=== PATIENT | male | born 1990 | race Hispanic/Latino ===

== ENCOUNTER 2017-05-22 04:13 | Emergency (ER) | payer OTHER ==
[2017-05-22 04:33] VITALS: BP 151/87; RESP 16; TEMP 97.7; O2SAT 100
--- NOTE | 2017-05-22 04:55 | ED PDOC ---
HPI: General Adult Time Seen by Provider: 05/22/17 04:36 Chief Complaint (Nursing): Palpitations History Per: Patient Additional Complaint(s): Pt. states earlier this evening he developed L sided forearm pain, "heartburn," and palpitations. Reports forearm pain is worse with active wrist extension. Also states that he recently returned from a trip to [place]. Denies calf pain, hx of DVT/PE, fever, trauma, numbness, tingling, weakness. Past Medical History Reviewed: Historical Data, Nursing Documentation, Vital Signs Vital Signs: Last Vital Signs Temp 97.7 F 05/22/17 04:30 Pulse 61 05/22/17 05:54 Resp 16 05/22/17 04:30 BP 151/87 H 05/22/17 04:30 Pulse Ox 100 05/22/17 05:54 - Family History Family History: States: No Known Family Hx - Allergies Allergies/Adverse Reactions: Allergies Allergy/AdvReac Type Severity Reaction Status Date / Time No Known Allergies Allergy Verified 05/22/17 04:42 Review of Systems ROS Statement: Except As Marked, All Systems Reviewed And Found Negative Cardiovascular: Positive for: Palpitations Musculoskeletal: Positive for: Arm Pain Physical Exam - Reviewed Nursing Documentation Reviewed: Yes Vital Signs Reviewed: Yes - Physical Exam Appears: Positive for: Well, Non-toxic, No Acute Distress Head Exam: Positive for: ATRAUMATIC, NORMAL INSPECTION, NORMOCEPHALIC Skin: Positive for: Normal Color, Warm. Negative for: Rash Eye Exam: Positive for: EOMI, Normal appearance, PERRL ENT: Positive for: Normal ENT Inspection Neck: Positive for: Normal, Painless ROM Cardiovascular/Chest: Positive for: Regular Rate, Rhythm, Chest Non Tender Respiratory: Positive for: CNT, Normal Breath Sounds Pulses-Radial (L): 2+ Pulses-Radial (R): 2+ Gastrointestinal/Abdominal: Positive for: Normal Exam, Bowel Sounds, Soft. Negative for: Tenderness Back: Positive for: Normal Inspection Extremity: Positive for: Normal ROM (of LUE actively), Capillary Refill (< 2 seconds of left upper extremity), Other (L forearm without tenderness, swelling , warmth, rash, erythema, deformity) Neurologic/Psych: Positive for: Alert, Oriented - Laboratory Results Result Diagrams: 05/22/17 04:53 05/22/17 04:53 - ECG ECG: Positive for: Interpreted By Me ECG Rhythm: Positive for: Sinus Rhythm. Negative for: ST/T Changes Rate: 61 O2 Sat by Pulse Oximetry: 100 - Radiology X-Ray: Interpreted by Me (CXR) X-Ray Interpretation: No Acute Disease - Progress ED Course And Treament: Pt. informed of elevated TSH and instructed to f/u with [facility]. Also informed of [employer]. Disposition - Clinical Impression Clinical Impression: Palpitations, Arm pain - Patient ED Disposition Is Patient to be Admitted: No - Disposition Referrals: [facility] [Outside] [facility] [Outside] Disposition: Routine/Home Disposition Time: 06:02 Condition: STABLE Additional Instructions: FOLLOW UP WITH [facility] FOR FURTHER EVALUATION OF ELEVATED TSH. Instructions: Palpitations (ED) Forms: [facility] ([place])
[2017-05-22 04:57] VITALS: PULSE 61
[2017-05-22 04:57] LABS: BASO # 0.1 K/uL (0.0-0.2); BASO % 1.2 % (0.0-2.0); EOS # 0.2 K/uL (0.0-0.7); EOS % 2.5 % (0.0-4.0); HEMATOCRIT 38.9 % (35.0-51.0); LYMPH # 2.2 K/uL (1.0-4.3); LYMPH % 31.9 % (20.0-40.0); MEAN CELL VOLUME 79.8 fl (80.0-94.0); MEAN CORPUSCULAR HEMOGLOBIN 25.9 pg (27.0-31.0); MEAN CORPUSCULAR HGB CONC 32.5 g/dL (33.0-37.0); MEAN PLATELET VOLUME 8.3 fl (7.2-11.7); MONO # 0.6 K/uL (0.0-0.8); MONO % 8.9 % (0.0-10.0); NEUT # 3.9 K/uL (1.8-7.0); NEUT % 55.5 % (50.0-75.0); NRBC % 0.1 % (0.0-0.0); RED CELL DISTRIBUTION WIDTH 13.2 % (11.5-14.5)
[2017-05-22 05:30] LABS: ALB/GLOB RATIO 1.4 (1.0-2.1); ALKALINE PHOSPHATASE 61 U/L (38-126); ALT/SGPT 46 U/L (21-72); AST/SGOT 27 U/L (17-59); BILIRUBIN,TOTAL 1.2 mg/dl (0.2-1.3); BLOOD UREA NITROGEN 22 mg/dl (9-20); CALCIUM 9.8 mg/dL (8.4-10.2); CARBON DIOXIDE 23 mmol/L (22-30); CHLORIDE 104 mmol/L (98-107); GFR AFRICAN-AMERICAN > 60; GLUCOSE,RANDOM 97 mg/dL (75-110); SODIUM 142 mmol/l (132-148)
[2017-05-22] MEDS ORDERED: Sodium Chloride 0.9% 1,000 ML IV STA (05:54)
[2017-05-22 05:59] LABS: THYROID STIMULATING HORMONE 6.73 mIU/ML (0.46-4.68)
--- NOTE | 2017-05-22 10:10 | RAD ---
HISTORY: chest pain COMPARISON: No prior. FINDINGS: LUNGS: No active pulmonary disease. PLEURA: No significant pleural effusion identified, no pneumothorax apparent. CARDIOVASCULAR: Normal. OSSEOUS STRUCTURES: No significant abnormalities. VISUALIZED UPPER ABDOMEN: Normal. OTHER FINDINGS: None. IMPRESSION: No active disease.
--- NOTE | 2017-05-22 11:27 | CARD ---
APPROVED REPORT EKG Measurement Heart [id number] NE 130P [id number] <Conclusion> Normal sinus rhythm Normal ECG
== END 2017-05-22 06:24 | disposition home or self-care (01) ==
LOC: H.ER 04:13
DX: R00.2 Palpitations (principal); M79.601 Pain in right arm

== ENCOUNTER 2018-01-09 10:56 | Emergency (ER) | payer OTHER ==
[2018-01-09 11:02] VITALS: BMI 25.0
--- NOTE | 2018-01-09 12:17 | ED PDOC ---
HPI: General Adult Time Seen by Provider: 01/09/18 11:51 Chief Complaint (Nursing): Weakness/Neurological Deficit Chief Complaint (Provider): Left facial and hand numbness History Per: Patient History/Exam Limitations: no limitations Onset/Duration Of Symptoms: Hrs (today 8am) Current Symptoms Are (Timing): Still Present Additional Complaint(s): Don Torres is a 27 year old male, with no significant past medical history , who presents to the emergency department complaining of numbness to lateral aspect of left hand, as well as left sided face since waking up this morning at 8:00am. 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 He denies any headache, changes in vision, or weakness of extremities. Patient also reports he was on vacation in the [place] and noted a rash to right wrist, but doesn't recall any bug bites. 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 He denies any fever, chills or joint pain. No further medical complaints. PMD: None provided. Past Medical History Reviewed: Historical Data, Nursing Documentation, Vital Signs Vital Signs: Last Vital Signs Temp 97.7 F 01/09/18 11:03 Pulse 83 01/09/18 11:03 Resp 20 01/09/18 11:03 BP 128/63 01/09/18 11:03 Pulse Ox 100 01/09/18 13:53 - Medical History PMH: No Chronic Diseases - Surgical History Surgical History: No Surg Hx - Family History Family History: States: No Known Family Hx - Social History Current smoker - smoking cessation education provided: No Alcohol: Social Drugs: Denies - Allergies Allergies/Adverse Reactions: Allergies Allergy/AdvReac Type Severity Reaction Status Date / Time shellfish derived Allergy RASH Verified 01/09/18 11:01 Review of Systems ROS Statement: Except As Marked, All Systems Reviewed And Found Negative Constitutional: Negative for: Fever, Chills Eyes: Negative for: Vision Change Musculoskeletal: Negative for: Other (joint pain) Neurological: Positive for: Numbness (to left hand and left sided face). Negative for: Weakness (extremities), Headache Physical Exam - Reviewed Nursing Documentation Reviewed: Yes Vital Signs Reviewed: Yes - Physical Exam Appears: Positive for: Non-toxic, No Acute Distress Head Exam: Positive for: ATRAUMATIC, NORMOCEPHALIC Skin: Positive for: Normal Color, Warm, Dry, Rash (erythematous circular rash to right inner wrist. flat no pale center, no scaling) Eye Exam: Positive for: Normal appearance, EOMI, PERRL Neck: Positive for: Painless ROM Respiratory: Negative for: Respiratory Distress Extremity: Positive for: Normal ROM (full ROM to all extremities). 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 Negative for: Motor/Sensory Deficits (no focal deficits) - ECG O2 Sat by Pulse Oximetry: 100 (RA) Pulse Ox Interpretation: Normal Medical Decision Making Medical Decision Making: Initial Plan: --Head w/o contrast [CT] --Lyme disease AB(IGG,M) IB --Lyme disease(B.SPP) DNA, B --Lyme disease, EIA W/ RFL WB --Lyme IGG --Lyme IGM --Reevaluation 13:[address] FINDINGS: HEMORRHAGE: No intracranial hemorrhage. BRAIN: Normal monreal-white matter differentiation and density are appreciated throughout the cerebrum and cerebellum with the brainstem appearing unremarkable as well. There is no mass effect. There is no suspicious extra-axial fluid collection and the midline brain anatomy appears diffusely unremarkable. VENTRICLES: Unremarkable. No hydrocephalus. CALVARIUM: No destructive bony lesion or displaced fracture identified including through the skullbase. PARANASAL SINUSES: Unremarkable as visualized. No significant inflammatory changes. MASTOID AIR CELLS: Unremarkable as visualized. No inflammatory changes. OTHER FINDINGS: None. IMPRESSION: Unremarkable unenhanced CT of the Head. Scribe Attestation: Documented by Clemente Martinez, acting as a scribe for Rm Lui MD Provider Scribe Attestation: All medical record entries made by the Scribe were at my direction and personally dictated by me. I have reviewed the chart and agree that the record accurately reflects my personal performance of the history, physical exam, medical decision making, and the department course for this patient. I have also personally directed, reviewed, and agree with the discharge instructions and disposition. Disposition - Clinical Impression Clinical Impression: Paresthesia - Patient ED Disposition Is Patient to be Admitted: No Counseled Patient/Family Regarding: Studies Performed, Diagnosis, Need For Followup - Disposition Referrals: Alan Kincaid MD [Medical Doctor] - Disposition: Routine/Home Disposition Time: 13:54 Condition: FAIR Instructions: Paresthesias (DC) Forms: [facility] ([place])
--- NOTE | 2018-01-09 13:15 | CT ---
PROCEDURE: CT HEAD WITHOUT CONTRAST. HISTORY: r/o bleed COMPARISON: None available. TECHNIQUE: Axial computed tomography images were obtained through the head/brain without intravenous contrast. Radiation dose: Total exam DLP = 886.73 mGy-cm. This CT exam was performed using one or more of the following dose reduction techniques: Automated exposure control, adjustment of the mA and/or kV according to patient size, and/or use of iterative reconstruction technique. FINDINGS: HEMORRHAGE: No intracranial hemorrhage. BRAIN: Normal monreal-white matter differentiation and density are appreciated throughout the cerebrum and cerebellum with the brainstem appearing unremarkable as well. There is no mass effect. There is no suspicious extra-axial fluid collection and the midline brain anatomy appears diffusely unremarkable. VENTRICLES: Unremarkable. No hydrocephalus. CALVARIUM: No destructive bony lesion or displaced fracture identified including through the skullbase. PARANASAL SINUSES: Unremarkable as visualized. No significant inflammatory changes. MASTOID AIR CELLS: Unremarkable as visualized. No inflammatory changes. OTHER FINDINGS: None. IMPRESSION: Unremarkable unenhanced CT of the Head.
[2018-01-09 14:28] VITALS: BP 128/78; PULSE 78; RESP 19; TEMP 96.6; O2SAT 98
[2018-01-11 12:05] LABS: 23 KD (IGG) BAND Nonreactive
== END 2018-01-09 14:28 | disposition home or self-care (01) ==
LOC: H.ER 10:56
DX: R20.2 Paresthesia of skin (principal)